=== PATIENT | female | born 1980 | race Hispanic/Latino ===

== ENCOUNTER 2019-01-30 18:21 | Emergency (ER) | payer OTHER ==
[2019-01-30 19:23] LABS: APPEARANCE,URINE Clear (CLEAR); BILIRUBIN,URINE Negative (NEGATIVE); COLOR,URINE Yellow (YELLOW); GLUCOSE, URINE (UA) Negative (NEGATIVE); KETONES,URINE Negative (NEGATIVE); LEUKOCYTE ESTERASE ,URINE Trace (NEGATIVE); NITRATE,URINE Negative (NEGATIVE); OCCULT BLOOD,URINE Negative (NEGATIVE); PH,URINE 7.5 (5.0-8.0); PROTEIN,URINE Negative (NEGATIVE)
[2019-01-30 19:41] LABS: HCG,QUAL RESULT NEGATIVE (NEGATIVE)
[2019-01-30 20:10] LABS: BACTERIA,URINE Rare /HPF (None Seen); RBC,URINE None Seen /HPF (0-1); SQUAMOUS EPITHELIAL CELL,UR 0-2 /HPF (0-2); WBC,URINE 0-1 /HPF (0-1)
== END 2019-01-30 21:36 | disposition home or self-care (01) ==
LOC: EDH 18:21
DX: B37.3 Candidiasis of vulva and vagina (principal); R10.2 Pelvic and perineal pain; Z72.0 Tobacco use
CPT/HCPCS: 76856; 81001; 81025

== ENCOUNTER 2022-07-23 15:58 | Emergency (ER) | payer OTHER ==
[~2022-07-23] VITALS: Ht 162.6 cm; Wt 73.9 kg
[2022-07-23 16:02] VITALS: BP 146/93
[2022-07-23 16:50] LABS: APPEARANCE,URINE CLEAR (CLEAR); BILIRUBIN,URINE NEGATIVE (NEGATIVE); COLOR,URINE YELLOW (YELLOW); GLUCOSE, URINE (UA) NEGATIVE (NEGATIVE); KETONES,URINE NEGATIVE (NEGATIVE); LEUKOCYTE ESTERASE ,URINE NEGATIVE (NEGATIVE); NITRATE,URINE NEGATIVE (NEGATIVE); OCCULT BLOOD,URINE TRACE-INTACT (NEGATIVE); PH,URINE 5.5 (5.0-8.0); PROTEIN,URINE NEGATIVE (NEGATIVE)
[2022-07-23 17:05] LABS: BACTERIA,URINE Few /HPF (None Seen); RBC,URINE None Seen /HPF (0-1); WBC,URINE None Seen /HPF (0-1)
[2022-07-23] MEDS ORDERED: ACET-66 PO (18:36)
== END 2022-07-23 19:11 | disposition home or self-care (01) ==
LOC: EDH 15:58
DX: M94.0 Chondrocostal junction syndrome [Tietze] (principal); Z98.890 Other specified postprocedural states; Y00.XXXA Assault by blunt object, initial encounter; Y93.89 Activity, other specified; Y92.89 Other specified places as the place of occurrence of the external cause; Y99.8 Other external cause status
CPT/HCPCS: 71101; 81001; 81025

== ENCOUNTER 2022-09-30 16:09 | Emergency (ER) | payer OTHER ==
[~2022-09-30] VITALS: Ht 162.6 cm; Wt 72.6 kg
[~2022-09-30 16:09] MED LIST: ACET-66 PO
[2022-09-30 16:11] VITALS: BP 128/82
[2022-09-30] MEDS ORDERED: GUAIFENESIN-DM 200/20 MG 10 ML PO ONE (16:30)
[2022-09-30] MEDS ORDERED: IPRATROPIUM/ALBUTEROL SULFATE 3 ML SOLUTION IH ONE ×2 (17:00→17:02)
[2022-09-30] MEDS ORDERED: AMOX/CLAV 875/125MG TAB PO ONE (17:00)
[2022-09-30] MEDS ORDERED: BUDESONIDE 0.5 MG/2 ML INH IH SCH (17:00)
[2022-09-30] MEDS ORDERED: ALBUTEROL 0.083% 2.5 MG/3 ML INH IH ONE ×2 (17:00→17:02)
[2022-09-30] MEDS ORDERED: PREDNISONE 20 MG TABLET PO ONE (17:00)
[2022-09-30] MEDS ORDERED: BUDESONIDE 0.5 MG/2 ML INH IH ONE (17:03)
[2022-09-30] MEDS ORDERED: ALBU6.7H14 IH (17:49)
[2022-09-30] MEDS ORDERED: PRED20TA3 PO (17:49)
[2022-09-30] MEDS ORDERED: D-ME1POW16 PO (17:49)
[2022-09-30] MEDS ORDERED: AMOX1TAB16 PO (17:49)
== END 2022-09-30 18:00 | disposition home or self-care (01) ==
LOC: EDH 16:09
DX: J40 Bronchitis, not specified as acute or chronic (principal); Z20.822 Contact with and (suspected) exposure to COVID-19; Z71.6 Tobacco abuse counseling; Z79.52 Long term (current) use of systemic steroids
CPT/HCPCS: 99284; 71045; 87635; 87804 ×2; 94640 ×2; C9803

== ENCOUNTER 2022-10-23 17:52 | Emergency (ER) | payer OTHER ==
[~2022-10-23] VITALS: Ht 162.6 cm; Wt 72.6 kg
[~2022-10-23 17:52] MED LIST changes: +ALBU6.7H14 IH; +AMOX1TAB16 PO; +D-ME1POW16 PO; +PRED20TA3 PO
[2022-10-23 18:42] VITALS: BP 123/73
[2022-10-23 19:07] LABS: APPEARANCE,URINE CLEAR (CLEAR); BILIRUBIN,URINE NEGATIVE (NEGATIVE); COLOR,URINE LIGHT-YELLOW (YELLOW); GLUCOSE, URINE (UA) NEGATIVE (NEGATIVE); KETONES,URINE NEGATIVE (NEGATIVE); LEUKOCYTE ESTERASE ,URINE NEGATIVE Leu/uL (NEGATIVE); NITRATE,URINE NEGATIVE (NEGATIVE); OCCULT BLOOD,URINE SMALL (NEGATIVE); PROTEIN,URINE NEGATIVE (NEGATIVE); UROBILINOGEN,URINE 0.2 mg/dL (0.2-1.0)
[2022-10-23 19:15] LABS: HCG,QUALITATIVE URINE NEGATIVE (NEGATIVE)
[2022-10-23 19:17] LABS: BACTERIA,URINE RARE /HPF (None Seen); MUCUS,URINE RARE LPF (None Seen); SQUAMOUS EPITHELIAL CELL,UR FEW /HPF (0-2); WBC,URINE 0-1 /HPF (0-1)
[2022-10-23] MEDS ORDERED: 0.9%NACL 1000ML 1,000 ML IV ONE (21:00)
[2022-10-23] MEDS ORDERED: KETOROLAC 15MG/ML VIAL (15MG/ML) IV ONE (21:00)
[2022-10-23] MEDS ORDERED: MORPHINE 2 MG SYG IVP ONE (21:00)
[2022-10-23] MEDS ORDERED: ONDANSETRON 4MG INJ IVP ONE (21:00)
[2022-10-23 21:17] LABS: BASOPHILS % (AUTO) 0.7 % (0.0-5.0); EOSINOPHILS % (AUTO) 2.1 % (0.0-8.0); HEMATOCRIT 36.6 % (36-48); LYMPHOCYTES % (AUTO) 32.4 % (21.0-51.0); MEAN CORPUSCULAR HEMOGLOBIN 31.2 pg (27.0-33.0); MEAN CORPUSCULAR HGB CONC 33.1 g/dL (32.0-36.0); MEAN CORPUSCULAR VOLUME 94.3 fL (79-99); MONOCYTES % (AUTO) 8.4 % (3.0-13.0); NEUTROPHILS % (AUTO) 56.1 % (40.0-77.0); PLATELET COUNT (AUTO) 185 K/uL (130-400); RED BLOOD CELL COUNT(AUTO) 3.88 MIL/uL (4.00-5.50); RED CELL DISTRIBUTION WIDTH 13.9 % (11.0-15.5); WHITE BLOOD COUNT (AUTO) 7.1 K/uL (4.8-10.8)
[2022-10-23 21:37] LABS: CREATININE 0.6 mg/dL (0.5-1.5); POTASSIUM 4.2 mmol/L (3.5-5.1)
[2022-10-23 21:41] LABS: ALBUMIN 3.5 g/dL (3.5-5.0); TOTAL PROTEIN, SERUM 7.1 g/dL (6.0-8.3)
[2022-10-23] MEDS ORDERED: METR-172 PO (21:56)
[2022-10-23] MEDS ORDERED: FLUCONAZOLE 100 MG TAB PO ONE (22:00)
[2022-10-23] MEDS ORDERED: CEFTRIAXONE 500MG VIAL IM SCH (22:00)
[2022-10-23] MEDS ORDERED: AZITHROMYCIN 250 MG TABLET PO ONE (22:00)
== END 2022-10-23 22:38 | disposition home or self-care (01) ==
LOC: EDH 17:52
DX: B37.31 Acute candidiasis of vulva and vagina (principal); N76.0 Acute vaginitis; Z79.52 Long term (current) use of systemic steroids
CPT/HCPCS: 99285; 96374; 76856; 96375; 96361; 80053; 85025; 87210; 87797; 87486; 81001; 81025; 36415; 96372; J7030; J2405; J0696; J1885

== ENCOUNTER 2023-03-29 21:13 | Emergency (ER) | payer OTHER ==
[~2023-03-29] VITALS: Ht 162.6 cm; Wt 86.2 kg
[~2023-03-29 21:13] MED LIST changes: +METR-172 PO
[2023-03-29 21:19] VITALS: BP 132/73
[2023-03-29 21:37] LABS: HEMATOCRIT 38.9 % (36-48); MEAN CORPUSCULAR HEMOGLOBIN 31.7 pg (27.0-33.0); MEAN CORPUSCULAR HGB CONC 33.2 g/dL (32.0-36.0); MEAN CORPUSCULAR VOLUME 95.6 fL (79-99); RED BLOOD CELL COUNT(AUTO) 4.07 MIL/uL (4.00-5.50); RED CELL DISTRIBUTION WIDTH 12.7 % (11.0-15.5)
[2023-03-29 21:39] LABS: APPEARANCE,URINE CLEAR (CLEAR); BILIRUBIN,URINE NEGATIVE (NEGATIVE); COLOR,URINE COLORLESS (YELLOW); GLUCOSE, URINE (UA) NEGATIVE (NEGATIVE); KETONES,URINE NEGATIVE (NEGATIVE); LEUKOCYTE ESTERASE ,URINE 250 Leu/uL (NEGATIVE); NITRATE,URINE NEGATIVE (NEGATIVE); OCCULT BLOOD,URINE NEGATIVE (NEGATIVE); PROTEIN,URINE NEGATIVE (NEGATIVE); UROBILINOGEN,URINE 0.2 mg/dL (0.2-1.0)
[2023-03-29 21:42] LABS: BACTERIA,URINE RARE /HPF (None Seen); OTHER CASTS, URINE 1 /LPF (None Seen); RBC,URINE 0-1 /HPF (0-1); SQUAMOUS EPITHELIAL CELL,UR RARE /HPF (0-2)
[2023-03-29 21:45] LABS: CREATININE 0.8 mg/dL (0.5-1.5); POTASSIUM 4.1 mmol/L (3.5-5.1)
[2023-03-29 21:50] LABS: TOTAL PROTEIN, SERUM 7.8 g/dL (6.0-8.3)
[2023-03-29] MEDS ORDERED: CEPH500B PO ×2 (22:15→22:46)
[2023-03-29] MEDS ORDERED: CEFTRIAXONE 1G VIAL IM ONE (22:30)
== END 2023-03-29 22:48 | disposition home or self-care (01) ==
LOC: EDH 21:13
DX: N39.0 Urinary tract infection, site not specified (principal); Z79.899 Other long term (current) drug therapy; Z98.890 Other specified postprocedural states
CPT/HCPCS: 99283; 80053; 85027; 87077; 87088; 87186; 81001; 36415; 96372; J0696

== ENCOUNTER 2024-04-25 16:17 | Emergency (ER) | payer OTHER ==
[~2024-04-25] VITALS: Ht 162.6 cm; Wt 68.0 kg
[~2024-04-25 16:17] MED LIST changes: -AMOX1TAB16 PO; -D-ME1POW16 PO; -METR-172 PO; -PRED20TA3 PO
[2024-04-25 16:19] VITALS: BP 123/85; PULSE 110; RESP 18
[2024-04-25 17:21] LABS: BASOPHILS # (AUTO) 0.08 K/uL (0.00-0.20); BASOPHILS % (AUTO) 0.7 % (0.0-5.0); EOSINOPHILS # (AUTO) 0.05 K/uL (0.00-0.70); EOSINOPHILS % (AUTO) 0.4 % (0.0-8.0); HEMATOCRIT 38.2 % (36-48); IMMATURE GRANULOCYTE ABSOLUTE 0.05 K/uL (0-1); LYMPHOCYTES # (AUTO) 2.6 K/uL (1.0-4.8); LYMPHOCYTES % (AUTO) 21.8 % (21.0-51.0); MEAN CORPUSCULAR HEMOGLOBIN 29.2 pg (27.0-33.0); MEAN CORPUSCULAR HGB CONC 32.5 g/dL (32.0-36.0); MEAN CORPUSCULAR VOLUME 89.9 fL (79-99); MONOCYTES # (AUTO) 1.2 K/uL (0.1-1.0); MONOCYTES % (AUTO) 9.7 % (3.0-13.0); PLATELET COUNT (AUTO) 283 K/uL (130-400); RED BLOOD CELL COUNT(AUTO) 4.25 MIL/uL (4.00-5.50); RED CELL DISTRIBUTION WIDTH 16.5 % (11.0-15.5); WHITE BLOOD COUNT (AUTO) 11.9 K/uL (4.8-10.8)
[2024-04-25 17:31] LABS: CREATININE 0.8 mg/dL (0.5-1.0); POTASSIUM 4.1 mmol/L (3.5-5.1)
== END 2024-04-25 19:42 | disposition home or self-care (01) ==
LOC: EDH 16:17
DX: R10.30 Lower abdominal pain, unspecified (principal); M54.50 Low back pain, unspecified; Z79.899 Other long term (current) drug therapy; Z98.890 Other specified postprocedural states; Y08.89XA Assault by other specified means, initial encounter; Y93.89 Activity, other specified; Y92.89 Other specified places as the place of occurrence of the external cause; Y99.8 Other external cause status
CPT/HCPCS: 36415; 74176; 80048; 84703; 85025